=== PATIENT | female | born 1980 | race Caucasian/White ===

== ENCOUNTER → 2018-04-15 | Outpatient (CLI) | END | disposition home or self-care (01) ==

== ENCOUNTER 2018-07-29 14:16 | Outpatient (CLI) | payer OTHER ==
[~2018-07-29] VITALS: Ht 157.5 cm; Wt 78.1 kg
[2018-07-29 14:32] VITALS: Ht 157.5 cm; Wt 78.1 kg
[2018-07-29 14:34] VITALS: BP 124/84
[2018-07-29] MEDS ORDERED: PREN1TAB71 PO (14:35)
--- NOTE | 2018-07-29 17:04 | PN ---
Triage Information Date/Time Reason for visit: One elevated blood pressure in office. Sent for further evaluation Weeks of Gestation 37 weeks and 5 days /Para Diabetes: gestational Hypertention: none Objective Vital Signs Date Temp Pulse Resp B/P (MAP) Pulse Ox O2 O2 Flow FiO2 Time Delivery Rate 07/29/18 97.6 124/84 14:34 (97) Heart Rate: 140's Contractions: >10 Minutes Apart Results/Medications Result Diagram: 07/29/18 1450 07/29/18 1450 Results 24 hrs Laboratory Tests Test 07/29/18 14:30 07/29/18 14:50 Urine Color STRAW Urine Clarity SLIGHTLY CLOUDY A Urine pH 7.0 Urine Specific [place] 1.002 L Urine Ketones NEGATIVE Urine Nitrite NEGATIVE Urine Bilirubin NEGATIVE Urine Urobilinogen NEGATIVE Urine Leukocyte Esterase NEGATIVE Urine Microscopic RBC 0 Urine Microscopic WBC 2 Urine Squamous Epithelial Cells FEW Urine Bacteria FEW A Urine Hemoglobin NEGATIVE Urine Glucose 1+ H Urine Total Protein NEGATIVE White Blood Count 8.0 Red Blood Count 4.34 Hemoglobin 13.1 Hematocrit 38.6 Mean Corpuscular Volume 88.9 Mean Corpuscular Hemoglobin 30.2 Mean Corpuscular Hemoglobin Concent 33.9 Red Cell Distribution Width 13.2 Platelet Count 214 Mean Platelet Volume 12.0 H Immature Granulocytes % 0.500 H Neutrophils % 67.7 Lymphocytes % 22.6 Monocytes % 8.0 Eosinophils % 1.0 Basophils % 0.2 Nucleated Red Blood Cells % 0.0 Immature Granulocytes # 0.040 H Neutrophils # 5.4 Lymphocytes # 1.8 Monocytes # 0.6 Eosinophils # 0.1 Basophils # 0.0 Nucleated Red Blood Cells # 0.0 Prothrombin Time 11.3 L Prothrombin Time Ratio 0.9 INR International Normalized Ratio 0.81 Activated Partial Thromboplast Time 22.9 L Fibrinogen 527.0 H Sodium Level 136 Potassium Level 4.3 Chloride Level 106 Carbon Dioxide Level 22 Anion Gap 8 Blood Urea Nitrogen 11 Creatinine 0.58 Est Glomerular Filtrat Rate mL/min > 60 Glucose Level 106 Uric Acid 4.5 Calcium Level 9.3 Total Bilirubin 0.2 Direct Bilirubin 0.00 Indirect Bilirubin 0.2 Aspartate Amino Transf (AST/SGOT) 19 Alanine Aminotransferase (ALT/SGPT) 18 Alkaline Phosphatase 220 H Total Protein 6.6 Albumin 3.4 Globulin 3.20 Albumin/Globulin Ratio 1.06 Disposition: Discharge Assessment/Plan 37 years old 3 para 1001 with single intrauterine at 37 weeks and 5 days was seen in her primary OB office. She had one elevated blood pressure repeat blood pressure was within normal limits. She referred to triage for further evaluation.She states good movement. She denies nausea, vomiting, shortness of breath, chest pain, abdominal pain, headache, visual changes, vaginal bleeding or LOF. -FHR: No sign of metabolic acidosis- Category I -Contractions: Occasional -Ultrasound performed as noted above -All her blood pressure in triage were within normal limits. Labs within normal limits. -24-hour urine protein ordered. -Symptoms and sign of labor, preeclampsia, kick count discussed with patient, she voiced understanding. All of her questions answered. -Patient was discharged home in stable condition with the appropriate discharge instructions provided. I would like patient to have close follow-up with her primary physician or outpatient clinic in 1-2 days or return to triage for worsening symptoms or any other urgent concerns. 2) gestational diabetes A2 she is currently on metformin 500 mg twice daily. Per patient all blood glucose are within normal limits. Random blood glucose in triage was 88. JOSIAS LAN Jul 29, 2018 17:04
--- NOTE | 2018-07-29 17:13 | TRIAGE ---
OB Triage Datetime Report Generated by CPN: 07/29/2018 17:12 Datetime: 07/29/2018 16:35 Stage of : OB Triage Labor Evaluation Frequency: x1 Monitor Mode: External Duration (sec)2399: 60 Pattern: Normal: <= 5 Contractions in 10 [address]: Relaxed Heart Rate FHR Baseline Rate: 135 Monitor Mode: External US Variability: Moderate 6-25 bpm Accelerations: 15X15 Decelerations: None Category: Category I Datetime: 07/29/2018 15:36 Stage of : OB Triage Labor Evaluation Frequency: IRREGULAR Monitor Mode: External Duration (sec)2399: 50-60 Pattern: Normal: <= 5 Contractions in 10 Minutes [address] Tone [address]: Relaxed Heart Rate FHR Baseline Rate: 135 Monitor Mode: External US Variability: Moderate 6-25 bpm Accelerations: 15X15 Decelerations: None Category: Category I Datetime: 07/29/2018 14:31 Comments: US AT BEDSIDE Datetime: 07/29/2018 14:30 Stage of : OB Triage Assessment Type: Triage Time of Arrival: 07/29/2018 14:08 EGA: 37.5 Arrived By: Ambulatory Arrived From: Dr. Giraldo Chief Complaint: SENT FROM CLINIC FOR PIH EVALUATION Movement: Present Contractions: Denies/Absent Rupture of Membranes: Denies Vaginal Bleeding: None Vaginal Discharge: Denies Recent Sexual Intercouse: Denies Abdominal Trauma: Not Applicable Patient Complaints: None Time Provider Notified: 07/29/2018 16:48 Provider Notified: Dr. Velasquez Initial Plan: EFM, BPP RONIT, PIH PANEL Maternal Assessment Level of Consciousness: Fully Conscious DTR's/Clonus: DTRs 2+; No Clonus Headache: Denies Blurred Vision: No Respiratory Effort: Unlabored; Regular Rhythm; Equal Expansion Breath Sounds, Left: Clear and Equal Breath Sounds, Right: Clear and Equal Nausea/Vomiting: Denies RUQ Epigastric Pain: Denies Lower Extremities Edema: None Degree: None Upper Extremities Edema: None Degree: None Facial Edema: None Temperature Route: Oral Fall Risk Assessment History of Falling: (0) No Secondary Diagnosis: (0) No Ambulatory Aid: (0) Bedrest/Nurse Assist IV Therapy: (0) No Gait: (0) Normal/Bedrest/Immobile Mental Status: (0) Oriented to Own Ability Fall Score: 0 Fall Risk Score Definition: No Risk: No action required Monitor Mode: External (Annotations: INITITAL PLACEMENT ) Monitor Mode: External US (Annotations: INITIAL PLACEMENT ) Pain Assessment Pain Scale: 0 Pain Presence: None/Denies Pain Type: N/A
[2018-07-30] MEDS ORDERED: METF500T24 PO ×2 (21:55→21:56)
== END 2018-07-29 17:10 | disposition home or self-care (01) ==
LOC: OBT 14:16 → L-D 14:16 → OBT 17:10
PROVIDERS: ATTEND Obstetrics & Gynecology
DX: O24.419 Gestational diabetes mellitus in pregnancy, unspecified control (principal); Z3A.37 37 weeks gestation of pregnancy
CPT/HCPCS: 76818; 80053; 81001; 81003; 84560; 85025; 85384; 85610; 85730; Z7500; G0463

== ENCOUNTER 2018-07-30 19:02 | Inpatient (IN) | payer OTHER ==
[~2018-07-30] VITALS: Ht 157.5 cm; Wt 78.9 kg
[~2018-07-30 19:02] MED LIST: PREN1TAB71 PO
--- NOTE | 2018-07-30 21:34 | HP ---
Date/Time of Note Date/Time of Note DATE: 07/30/18 TIME: 21:31 OB - History Hx of Present Free Text/Dictation 37 YO with IUP at 35 weeks with EDC 09/02/2018. she was seen in Triage yesterday due o premature uterine contractions. she was 1.5 cm dilated. she was given Procardia XL 60 mg po and oral hydration. she felt better. she was given first dose of steroid. she is here for 2nd dose of Betamethasone. she denies UCs, LOF per vagina or vaginal bleeding. she reports good FM. Care: Good Care Ultrasounds: Normal mid trimester US Obstetrical Complications: None Medical Complications: None Past Family/Social History * Past Medical, Surgical, Family and Obstetric Histories reviewed from chart. OB Admission Exam Physical Exam HEENT: WNL Heart: Rhythm Normal Lungs: Clear, Equal Abdomen: WNL Extremities: Normal Reflexes: Normal OB Assessment/Plan Other Assessment: IUP at 35 weeks Labor Resolved Plan: Expectant Management IHSAN SALVADOR MD Jul 30, 2018 21:34
[2018-07-30 21:51] VITALS: Ht 157.5 cm; Wt 78.9 kg
[2018-07-30] MEDS ORDERED: METF500T24 PO ×2 (21:55→21:56)
[2018-07-30] MEDS ORDERED: OXYTOCIN 30 UNITS/LR 500 ML IV PRN (22:30)
[2018-07-30] MEDS ORDERED: CARBOPROST 250 MCG INJ IM PRN (22:30)
[2018-07-30] MEDS ORDERED: LIDOCAINE 1% (MPF) 30 ML INJ INJ PRN (22:30)
[2018-07-30] MEDS ORDERED: OXYTOCIN 30 UNITS/LR 500 ML IV SCH ×2 (22:30)
[2018-07-30] MEDS ORDERED: MISOPROSTOL 200 MCG TAB PR PRN (22:30)
[2018-07-30] MEDS ORDERED: BUTORPHANOL 2 MG INJ IV PRN (22:30)
[2018-07-30] MEDS ORDERED: METHYLERGONOVINE 0.2 MG INJ IM PRN (22:30)
[2018-07-31] MEDS ORDERED: ACCU-CHEK XX SCH (06:00)
[2018-07-31] MEDS ORDERED: METOCLOPRAMIDE 10 MG INJ ONE (07:00)
[2018-07-31] MEDS ORDERED: OXYTOCIN 30 UNITS/LR 500 ML BAG IV ONE (07:00)
[2018-07-31] MEDS ORDERED: CEFAZOLIN 2 GM/50 ML (PMX) 50 ML IVPB ONE ×2 (10:30→11:30)
--- NOTE | 2018-07-31 14:30 | PREAC ---
Date/Time of Note Date/Time of Note DATE: 07/31/18 TIME: 14:28 Anesthesia Eval and Record Evaluation Time Pre-Procedure Interview DATE: 07/31/18 TIME: 14:28 Age 37 Sex female NPO: 8 hrs Preoperative diagnosis IUP Planned procedure Repeat Csection Past Medical History Past Medical History: Includes Endo: Diabetes Surgery & Anesthesia Issues No known issue Meds Anticoagulation: No Beta Maximiliano within 24 hr: No Reason Beta Maximiliano not given: Pt. not on B-Maximiliano Reported Medications Metformin Hcl* (Metformin Hcl*) 500 Mg Tablet, 500 MG PO WITH MEALS, #90 TAB 07/30/18 Metformin Hcl* (Metformin Hcl*) 500 Mg Tablet, 500 MG PO WITH BREAKFAST, #30 TAB 07/30/18 Vit No.130/Iron/FA ( Tablet) 1 Each Tablet, 1 EACH PO 07/29/18 Current Medications Lactated Ringer's 1,000 ml @ 125 mls/hr Q8H IV ; Start 07/30/18 at 22:07 Butorphanol Tartrate (Stadol) 2 mg Q2H PRN IV .PAIN; Start 07/30/18 at 22:30 Lidocaine (Xylocaine 1% (Mpf)) 30 ml ONCE PRN INJ .EPISIOTOMY; Start 07/30/18 at 22:30 Oxytocin/Lactated Ringer's 500 ml @ 500 mls/hr ONCE POST IV ; Start 07/30/18 at 22:30 Oxytocin/Lactated Ringer's 500 ml @ 125 mls/hr POST IV ; Start 07/30/18 at 22:30 Oxytocin/Lactated Ringer's 500 ml @ 0 mls/hr ONCE PRN IV .VAGINAL BLEEDING; Start 07/30/18 at 22:30 Methylergonovine Maleate (Methergine) 0.2 mg ONCE PRN IM .VAGINAL BLEEDING; Start 07/30/18 at 22:30 Carboprost Tromethamine (Hemabate) 250 mcg ONCE PRN IM .VAGINAL BLEEDING; Start 07/30/18 at 22:30 Misoprostol (Cytotec) 1,000 mcg ONCE PRN ID .VAGINAL BLEEDING; Start 07/30/18 at 22:30 Diagnostic Test (Pha) (Accu-Chek) 1 ea FBSPP XX ; Start 07/31/18 at 06:00 Meds reviewed: Yes Allergies Coded Allergies: No Known Allergy (Unverified , 07/30/18) Allergies Reviewed: Yes Labs/Studies Labs Reviewed: Reviewed by anesthesiologist Result Diagram: 07/31/18 1030 Laboratory Tests 07/31/18 10:30 Blood Bank Test 07/31/18 10:30 Antibody Screen NEGATIVE Blood Type A POSITIVE Rh Immune Globulin Candidate NO test: Positive Studies: ECG Pre-procedure Exam Last vitals BP:112/56, P:78, Spo2:100%, T:98,8 Airway: Adequate mouth opening, Adequate thyromental dist Mallampati: Mallampati II Teeth: Normal Lung: Normal Heart: Normal ASA Physical Status ASA physical status: 2 Emergency: None Planned Anesthetic Neuraxial: Spinal Planned Pain Management Sub-arachniod narcotics, Parenteral pain med Pre-operative Attestations Prior to commencing anesthesia and surgery, the patient was re-evaluated, there was verification of: *The patient's identity *The results of appropriate recent lab work and preoperative vital signs *The above evaluation not changing prior to induction *Anesthetic plan, risk benefits, alternative and complications discussed with patient/family; questions answered; patient/family understands, accepts and wishes to proceed. SHUN COELLO MD Jul 31, 2018 14:30
[2018-07-31] MEDS: LACTATED RINGER'S 1,000 ML IV SCH (15:30)
[2018-07-31] MEDS ORDERED: OXYTOCIN 10 UNIT INJ ONE (16:18)
[2018-07-31] MEDS ORDERED: morphine SULFATE/PF (10 MG/10 ML) INJ ONE (16:18)
[2018-07-31] MEDS ORDERED: ONDANSETRON 4 MG INJ ONE (16:18)
[2018-07-31] MEDS ORDERED: PHENYLephrine (100 MCG/ML) 5ML SYG ONE (16:18)
[2018-07-31] MEDS ORDERED: PHENYLephrine 10 MG INJ ONE (17:29)
--- NOTE | 2018-07-31 17:30 | HP ---
Date/Time of Note Date/Time of Note DATE: 07/31/18 TIME: 17:25 OB - History Hx of Present Free Text/Dictation 37-year-old female 4 para 1 AB 2 at 88 weeks gestation admitted because of gram of proteinuria and elevated blood pressure day prior to admission hence diagnosis of PIH Patient is also gestational diabetic She has history of previous times 119 years prior to this admission Last Menstrual Period: Nov 07, 2017 Estimated Due Date: Aug 14, 2018 : 4 Para: 1 Therapeutic : 2 Care: Good Care Ultrasounds: Normal mid trimester US Obstetrical Complications: Gestational Diabetes, Gestational Hypertension Medical Complications: None, Other (Previous x1) Past Family/Social History * Past Medical, Surgical, Family and Obstetric Histories reviewed from chart. Blood Type: A+ Rubella: immune RPR/VDRL: Negative GBS Status: Negative HBsAG: Negative OB Admission Exam Physical Exam HEENT: WNL Heart: Rhythm Normal Lungs: Clear, Equal Abdomen: WNL Extremities: Normal Reflexes: Normal Cervical Dilatation: None Effacement: 0% Station: -3 Membranes: Intact Amniotic Fluid: Clear Heart Rate: 140's Accelerations: Accelerations Present Decelerations: No Decelerations Varibility: Marked Contractions on Admission: None Last 72 hourBlood Glucose Bedside Glucose - 72 Hours Test 07/30/18 23:04 07/31/18 09:35 Bedside Glucose 108 mg/dL (70-220) 97 mg/dL (70-220) Last 72 hours Lab Results CBC & BMP 07/31/18 10:30 OB Assessment/Plan Reason for admission: section Other Assessment: Previous section x1 38 weeks gestation Mild -induced hypertension and gestational diabetes Other plan: Repeat section BROOKE PELAYO MD Jul 31, 2018 17:30
[2018-07-31] MEDS ORDERED: GLYCOPYRROLATE 0.4 MG INJ ONE (17:32)
[2018-07-31] MEDS ORDERED: KETOROLAC 30 MG INJ IV STA (17:34)
--- NOTE | 2018-07-31 17:34 | OPR ---
Operative Report Planned Procedure Free Text/Dictation Repeat Procedure date Jul 31, 2018 Procedure(s) Repeat delivery Performed by see signature line Inside Polisher: CAMRON PARSON MD Anesthesiologist: SHUN COELLO MD Pre-procedure diagnosis 38 weeks gestation Previous section Hypertension gestational diabetes [id number] Anesthesia Type: Attys1p spinal Post-Procedure Post-procedure diagnosis Status post repeat Findings Live Baby in OT position Clear and scant amniotic fluid Didelphic uterus Normal-appearing right and left fallopian tubes Estimated Blood Loss: 500 - 600 mls Specimen(s) none Grafts/Implant(s) none Complication(s) none Pt Condition post procedure: stable Disposition: PACU Procedure Description Under satisfactory anaesthesia a Pfannenstiel incision was made two fingerbreadth above and parallel to the symphysis of pubis around the previous scar and previous scar was removed Incision was extended laterally to the border of the Recti muscles on either sides. Incision was carried down with sharp and blunt dissection until fascia was reached. Anterior Recti muscle fascia was incised in mid portion and incision extended laterally to the border of skin incision. Fascia was mobilized from muscle superiorly and Recti muscles were from midline using sharp and blunt dissection. Peritoneum was visualized; Avoiding bowel and bladder it was incised . Incision was extended superiorly and inferiorly. Bladder blade was placed. Posterior peritoneum covering the lower segment of the uterus and lower segment of the uterus were incised.Low transverse uterine incision was made on lower segment of the uterus. Incision extended laterally to the border of Round Lig. on either sides and baby was delivered from OT. position . Amniotic fluid appeared clear however scant. Cord blood was obtained and cord had 3 vessels . Placenta was delivered spontaneously and appeared intact and complete. Intrauterine cavity was rubbed with a laparotomy sponge. Uterine incision was closed in 2 layers using running stitches of No1 Monocryl. Hemostasis appeared secure. Ovaries and Fallopian tubes were within normal limits. Uterus appears to be didelphic patient appeared to be on the left side of the Announcing needle, lap sponge and instrument count to be correct abdomen was closed in layers as follows: Peritoneum and Recti muscles with running stitches of 2-0 Vicryl. Fascia with running stitch of No 1 PDS. Subcutaneous tissue with running stitches of 2-0 Monocryl and skin was closed using benson. Patient tolerated the procedure well and was transferred to [facility] in good condition. BROOKE PELAYO MD Jul 31, 2018 17:34
--- NOTE | 2018-07-31 17:49 | PAC ---
Date/Time of Note Date/Time of Note DATE: 07/31/18 TIME: 17:48 Post-Anesthesia Notes Post-Anesthesia Note Activity: WNL Respiratory function: WNL Cardiovascular function: WNL Mental status: Baseline Pain reasonably controlled: Yes Hydration appropriate: Yes Nausea/Vomiting absent: Yes Comments bp:112/56, p:78, sPO2:100%, t:98,8 SHUN COELLO MD Jul 31, 2018 17:49
[2018-07-31] MEDS ORDERED: NALOXONE (0.4 MG/ML) INJ IV PRN (18:00)
[2018-07-31] MEDS ORDERED: KETOROLAC 30 MG INJ IV PRN (18:00)
[2018-07-31] MEDS ORDERED: ONDANSETRON 4 MG INJ IV PRN (18:00)
[2018-07-31] MEDS ORDERED: AZITHROMYCIN 500MG/NS (PMX) 250 ML IVPB ONE (18:00)
[2018-07-31] MEDS ORDERED: morphine 2 MG INJ IV PRN (18:00)
[2018-07-31] MEDS ORDERED: DIPHENHYDRAMINE 50 MG INJ IV PRN (18:00)
[2018-07-31] MEDS ORDERED: BACITRACIN 0.9 GM OINT TOP ONE (18:30)
[2018-07-31 20:45] VITALS: BP 121/80; PULSE 81; RESP 20
[2018-07-31] MEDS ORDERED: LACTATED RINGER'S 1,000 ML IV SCH (21:33)
[2018-07-31] MEDS ORDERED: MISOPROSTOL 200 MCG TAB PR PRN (22:00)
[2018-07-31] MEDS ORDERED: LANOLIN HPA 1 PKT TOP PRN (22:00)
[2018-07-31] MEDS ORDERED: METHYLERGONOVINE 0.2 MG INJ IM PRN (22:00)
[2018-07-31] MEDS ORDERED: OXYTOCIN 30 UNITS/LR 500 ML IV PRN (22:00)
[2018-07-31] MEDS ORDERED: CARBOPROST 250 MCG INJ IM PRN (22:00)
[2018-07-31] MEDS: SENNA/DOCUSATE NA (8.6MG/50MG) TAB PO SCH (22:00)
[2018-07-31] MEDS ORDERED: NA PHOSPHATE/BIPHOS 133 ML ENEMA PR PRN (22:00)
[2018-07-31] MEDS: CLINDAMYCIN 300 MG CAP PO SCH (22:21)
[2018-07-31] MEDS: CEFAZOLIN 2 GM/50 ML (PMX) 50 ML IVPB SCH (23:50)
[2018-08-01 00:29] VITALS: BP 125/81; PULSE 92; RESP 19
[2018-08-01 04:00] VITALS: BP 111/69; PULSE 82; RESP 20
[2018-08-01] MEDS: CEFAZOLIN 2 GM/50 ML (PMX) 50 ML IVPB SCH ×3 (06:00→13:51)
[2018-08-01] MEDS: LACTATED RINGER'S 1,000 ML IV SCH ×3 (06:06→23:13)
[2018-08-01] MEDS: CLINDAMYCIN 300 MG CAP PO SCH ×4 (06:42→23:49)
[2018-08-01] MEDS: ACCU-CHEK XX SCH ×4 (07:30→21:21)
[2018-08-01 08:00] VITALS: BP 111/70; RESP 18
[2018-08-01] MEDS: SENNA/DOCUSATE NA (8.6MG/50MG) TAB PO SCH ×2 (08:29→21:17)
[2018-08-01] MEDS: metFORMIN (XR) 500 MG TAB PO SCH ×2 (08:29→21:17)
[2018-08-01] MEDS ORDERED: BISACODYL 10 MG SUPP PR ONE (10:00)
[2018-08-01 12:00] VITALS: BP 100/62; PULSE 89; RESP 18
[2018-08-01 15:05] VITALS: BP 108/69; PULSE 83; RESP 19
--- NOTE | 2018-08-01 16:44 | PN ---
Date/Time of Note Date/Time of Note DATE: 08/01/18 TIME: 16:42 Assessment/Plan VTE Prophylaxis VTE Prophylaxis Intervention: ambulation Lines/Catheters IV Catheter Type (from Nrsg): Peripheral IV Assessment/Plan Assessment/Plan Status post postop day #1 Advance diet and ambulate Continue to monitor vital signs Subjective 24 Hr Interval Summary No bowel movement but passing flatus Constitutional: no complaints, improved, ambulates, BM, flatus, urine output Pain Control: well controlled Exam/Review of Systems Vital Signs Vitals Vital Signs Date Temp Pulse Resp B/P (MAP) Pulse Ox O2 O2 Flow FiO2 Time Delivery Rate 08/01/18 97.9 83 19 108/69 98 Room Air 15:05 (82) Intake and Output 07/31/18 07/31/18 08/01/18 1515:00 23:00 07:00 IntakeIntake Total 550 ml 1565 ml OutputOutput Total 450 ml BalanceBalance 550 ml 1115 ml Exam Free Text/Dictation Abdomen is soft with present bowel sounds and abdomen does not seem distended Constitutional: alert, oriented, well developed Psych: no complaints, nl mood/affect Head: normocephalic, atraumatic Eyes: nl conjunctiva, EOMI, nl lids, nl sclera ENMT: nl external ears & nose, nl lips & teeth, nl nasal mucosa & septum, mucosa pink and moist Neck: supple, non-tender Respiratory: clear to auscultation, normal air movement Cardiovascular: regular rate and rhythm, nl pulses Gastrointestinal: soft, nl liver, spleen, non-tender Musculoskeletal: nl extremities to inspection, nl gait and stance Extremities: normal pulses Neurological: [employer] II-XII intact, nl mental status, nl speech, nl strength Skin: nl turgor, rash or lesions Lymph: nl lymph nodes Results Result Diagram: 08/01/18 1619 BROOKE PELAYO MD Aug 01, 2018 16:44
[2018-08-01] MEDS ORDERED: HYDROCODONE/APAP (5/325) TAB PO PRN (18:00)
[2018-08-01] MEDS: CIPROFLOXACIN 500 MG TAB PO SCH (18:33)
[2018-08-01 20:15] VITALS: BP 126/87; PULSE 89; RESP 18
[2018-08-01] MEDS: IBUPROFEN 800 MG TAB PO SCH (21:17)
[2018-08-01] MEDS: OXYCODONE/ACETAMINOPHEN (5/325) TAB PO PRN (22:23)
[2018-08-02] MEDS: OXYCODONE/ACETAMINOPHEN (5/325) TAB PO PRN (03:55)
[2018-08-02 05:12] VITALS: BP 116/78; PULSE 82; RESP 18
[2018-08-02] MEDS: LACTATED RINGER'S 1,000 ML IV SCH (06:00)
[2018-08-02] MEDS: CLINDAMYCIN 300 MG CAP PO SCH ×3 (06:04→17:59)
[2018-08-02] MEDS: IBUPROFEN 800 MG TAB PO SCH ×3 (06:05→22:49)
[2018-08-02] MEDS: CIPROFLOXACIN 500 MG TAB PO SCH ×2 (06:05→17:59)
[2018-08-02] MEDS: ACCU-CHEK XX SCH ×4 (07:30→20:46)
[2018-08-02 08:25] VITALS: BP 124/85; PULSE 82; RESP 17
[2018-08-02] MEDS: SENNA/DOCUSATE NA (8.6MG/50MG) TAB PO SCH ×2 (08:28→20:46)
[2018-08-02] MEDS: metFORMIN (XR) 500 MG TAB PO SCH ×2 (09:03→20:46)
--- NOTE | 2018-08-02 15:20 | PD.PPDC ---
BLAST FURNACE CHECKER Discharge Instruction Provider Information Physician Information 37-year-old female repeat section with diagnosis of mild - induced hypertension at 37 weeks Diagnosis Eytep1Sf Final Diagnosis: Iwlis2g -induced hypertension, gestational diabetes, 38 weeks gestation, Condition [id number] Patient Condition: Ypbsm0b Good Diet [id number] Diet: Zftat4c Special Diet Special Diet: 2000-calorie ADA Activity/Restrictions [id number] Activity: Shxzs3k September Shower Tdqtm1Lg Restrictions: Oyvyo5q No Exercising No Lifting Nothing in the Vagina [id number] Return to Work or School: Eveaz5t September 28, 2018 Wound/Drain Care Instructions [id number] Wound/Drain Care Instructions: Kukfx4o Keep clean and dry Follow-up Follow-up with Physician: 2, 3, Day/Days (In clinic for staple removal) Return to clinic for [id number] CHAIN PULLER Instructions: Bdnnw2j Fever greater than 101 Chills Ufipx1Hu OB Instructions: Wsjah6m Breast Tenderness Depression Comment: Pelvic rest no hard activity for 2 months [id number] Surgical Instructions: Irzfs9r Incisional Drainage BROOKE PELAYO MD Aug 02, 2018 15:20
[2018-08-02] MEDS ORDERED: ACET325T33 PO ×2 (15:21→15:42)
[2018-08-02] MEDS ORDERED: METF500T3 PO ×2 (15:22→15:40)
[2018-08-02] MEDS ORDERED: IBUP800T48 PO ×2 (15:22→15:39)
--- NOTE | 2018-08-02 15:24 | DS ---
Date/Time of Note Date/Time of Note Home today or next day DATE: 08/02/18 TIME: 15:23 Obstetrical Discharge Record Final Diagnosis Final Diagnosis: Term delivered Other Final Diagnosis Status post Section Section: Repeat Complications Gestational Diabetes, Preg induced Hypertension Condition on Discharge Physical Assessment Last Vitals: See nurse's notes Voiding: Yes Bowel Movement: Yes Breast: Soft, non-tender, Filling Fundus: Firm Abdomen and Incision: Abdomen is soft with present bowel sounds Incision appears to be healing well without induration erythema Calf Tenderness: No Patient Condition: Good BROOKE PELAYO MD Aug 02, 2018 15:24
--- NOTE | 2018-08-02 15:27 | DS ---
Date/Time of Note Date/Time of Note DATE: 08/02/18 TIME: 15:24 Discharge Summary Admission/Discharge Info Admit Date/Time Jul 30, 2018 at 21:00 Discharge Date/Time August 02 or August 03, 2018 Discharge Diagnosis Status post repeat , Status post -induced hypertension, Gestational diabetes Patient Condition: Good Procedures Repeat delivery Hx of Present Illness 37-year-old female had a repeat Noted to have didelphic uterus Hospital Course Hospital course remained uncomplicated Home Meds Active Scripts Ibuprofen* (Motrin*) 800 Mg Tab, 800 MG PO Q8, #60 TAB 0 Refills Prov:BROOKE PELAYO MD 08/02/18 Metformin* (Glucophage* XR) 500 Mg Tab.sr.24h, 500 MG PO BID, #120 4 Refills Prov:BROOKE PELAYO MD 08/02/18 Acetaminophen* (Tylenol*) 325 Mg Tablet, 650 MG PO Q6H, #60 TAB 0 Refills Prov:BROOKE PELAYO MD 08/02/18 Reported Medications Metformin Hcl* (Metformin Hcl*) 500 Mg Tablet, 500 MG PO WITH MEALS, #90 TAB 07/30/18 Metformin Hcl* (Metformin Hcl*) 500 Mg Tablet, 500 MG PO WITH BREAKFAST, #30 TAB 07/30/18 Vit No.130/Iron/FA ( Tablet) 1 Each Tablet, 1 EACH PO 07/29/18 Follow-up Plan To 3 days in clinic for staple removal Primary Care Provider Not On Staff Doctor Time spent on discharge: > 30 minutes Pending Labs Laboratory Tests Test 08/01/18 16:19 08/01/18 21:21 08/02/18 07:25 08/02/18 08:26 White Blood 15.8 14.8 Count 10^3/ul (4.8-10 10^3/ul (4.8-1 .8) 0.8) Red Blood 3.24 3.07 Count 10^6/ul (4.20-5 10^6/ul (4.20- .40) 5.40) Hemoglobin 9.9 9.5 g/dl (12.0-16.0 g/dl (12.0-16. ) 0) Hematocrit 29.2 28.3 % (37.0-47.0) % (37.0-47.0) Mean 90.1 92.2 Corpuscular fl (82.0-101.0) fl (82.0-101.0 Volume ) Mean 30.6 30.9 Corpuscular pg (29.0-33.0) pg (29.0-33.0) Hemoglobin Mean 33.9 33.6 Corpuscular g/dl (32.0-37.0 g/dl (32.0-37. Hemoglobin Conc ) 0) ent Red Cell 13.5 13.6 Distribution % (11.5-14.5) % (11.5-14.5) Width Platelet Count 163 167 10^3/UL (140-41 10^3/UL (140-4 5) 15) Mean Platelet 11.6 12.2 Volume fl (7.4-10.4) fl (7.4-10.4) Immature 0.400 0.600 Granulocytes % % (0.001-0.429) % (0.001-0.429 ) Neutrophils % 81.1 79.5 % (39.0-77.0) % (39.0-77.0) Lymphocytes % 13.3 14.9 % (15.0-51.0) % (15.0-51.0) Monocytes % 4.6 3.9 % (0.0-11.0) % (0.0-11.0) Eosinophils % 0.4 % (0.0-7.0) 0.8 % (0.0-7.0) Basophils % 0.2 % (0.0-2.0) 0.3 % (0.0-2.0) Nucleated Red 0.0 0.0 Blood Cells % /100WBC (0.0-0. /100WBC (0.0-0 0) .0) Immature 0.060 0.090 Granulocytes # 10^3/ul (0.0-0. 10^3/ul (0.0-0 031) .031) Neutrophils # 12.8 11.8 10^3/ul (1.6-7. 10^3/ul (1.6-7 5) .5) Lymphocytes # 2.1 2.2 10^3/ul (0.8-2. 10^3/ul (0.8-2 9) .9) Monocytes # 0.7 0.6 10^3/ul (0.3-0. 10^3/ul (0.3-0 9) .9) Eosinophils # 0.1 0.1 10^3/ul (0.0-0. 10^3/ul (0.0-0 5) .5) Basophils # 0.0 0.1 10^3/ul (0.0-0. 10^3/ul (0.0-0 1) .1) Nucleated Red 0.0 0.0 Blood Cells # 10^3/ul (0.0-0. 10^3/ul (0.0-0 0) .0) Bedside 107 95 Glucose mg/dL (70-220) mg/dL (70-220) Test 08/02/18 10:31 08/02/18 11:05 08/02/18 14:47 Bedside 91 91 106 Glucose mg/dL (70-220) mg/dL (70-220) mg/dL (70-220) BROOKE PELAYO MD Aug 02, 2018 15:27
[2018-08-02] MEDS ORDERED: ACETAMINOPHEN 325 MG TAB PO SCH (15:30)
[2018-08-02 15:40] VITALS: RESP 16
[2018-08-02 15:50] VITALS: BP 109/72; PULSE 87; RESP 16
[2018-08-02] MEDS: ACETAMINOPHEN 325 MG TAB PO SCH ×2 (16:22→22:00)
[2018-08-02 20:20] VITALS: BP 128/70; PULSE 75; RESP 20
[2018-08-03] MEDS: CLINDAMYCIN 300 MG CAP PO SCH ×3 (00:18→13:23)
[2018-08-03 04:00] VITALS: BP 112/70; PULSE 81; RESP 18
[2018-08-03] MEDS: ACETAMINOPHEN 325 MG TAB PO SCH ×2 (04:00→13:24)
[2018-08-03] MEDS: CIPROFLOXACIN 500 MG TAB PO SCH (05:38)
[2018-08-03] MEDS: IBUPROFEN 800 MG TAB PO SCH (05:38)
[2018-08-03 07:45] VITALS: BP 120/77; PULSE 76; RESP 18
[2018-08-03] MEDS: metFORMIN (XR) 500 MG TAB PO SCH (08:48)
[2018-08-03] MEDS: SENNA/DOCUSATE NA (8.6MG/50MG) TAB PO SCH (08:48)
[2018-08-03] MEDS ORDERED: MEASLES,MUMPS,RUBELLA VACCINE INJ SC* ONE (09:00)
[2018-08-03] MEDS ORDERED: DIPHTH/TET/ACEL PERTUSS (ADULT) 0.5 ML VIAL IM* ONE (09:00)
--- NOTE | 2018-08-04 16:57 | DELSUM ---
Delivery Summary A-C Datetime Report Generated by CPN: 08/04/2018 16:56 DELIVERY PERSONNEL [employer]: Paul, Maddi MATERNAL INFORMATION Delivery Anesthesia: Spinal Medications in Delivery: SEE FLOW SHEET Delivery QBL (ml): 600 Placenta Cultured: No Maternal Complications: None Other Maternal Complications: Rc/s [facility] LABOR SUMMARY EDC: 08/14/2018 00:00 No. Babies in Womb: 1 Attempted: No Labor Anesthesia: None LABOR INFORMATION Reason for Induction: Not Applicable Oxytocin: N/A Group B Beta Strep: Negative Antibiotics # of Doses: Ancef 2 grams Antibiotics Time of Last Dose: 07/31/2018 16:27 Steroids Given: None Reason Steroids Not Administered: Not Applicable MEMBRANES Membranes Rupture Method: Artificial Rupture of Membranes: 07/31/2018 16:53 Length of Rupture (hr): 0.00 Amniotic Fluid Color: Bloody Amniotic Fluid Amount: Scant Amniotic Fluid Odor: None STAGES OF LABOR Stage 3 hr: 0 Stage 3 min: 0 CSECTION DELIVERY Primary Indication: Repeat Elective Secondary Indication: N/A CSection Urgency: Non Elective CSection Incidence: Repeat Labor: No Labor Elective: Nonelective CSection Incision: Lower Uterine Transverse BABY A INFORMATION Delivery Date/Time: 07/31/2018 16:53 Method of Delivery: Born in Route : No : N/A Forceps: N/A Vacuum Extraction: N/A Shoulder Dystocia : N/A SHOULDER DYSTOCIA BABY A Infant Delivery Date/Time: 07/31/2018 16:53 PRESENTATION/POSITION BABY A Presentation: Cephalic Cephalic Presentation: Vertex Vertex Position: Right Occipital Posterior Breech Presentation: N/A PLACENTA INFORMATION BABY A Placenta Delivery Time : 07/31/2018 16:53 Placenta Method of Delivery: Manual Removal Placenta Status: Delivered SCORES BABY A Heart Rate 1 min: >100 bpm Resp Effort 1 min: Good Cry Reflex Irritability 1 min: Cough/Sneeze/Pulls Away Muscle Tone 1 min: Active Motion Color 1 min: Body [place], Extremit Blue Resuscitation Effort 1 min: Tactile Stimulation SCORE 1 MIN: 9 Heart Rate 5 min: >100 bpm Resp Effort 5 min: Good Cry Reflex Irritability 5 min: Cough/Sneeze/Pulls Away Muscle Tone 5 min: Active Motion Color 5 min: Body [place], Extremit Blue Resuscitation Effort 5 min: Tactile Stimulation SCORE 5 MIN: 9 INFANT INFORMATION BABY A Gestational Age at Delivery: 38.0 Gestational Status: Early Term- 37- 38.6 Weeks Infant Outcome : Liveborn Infant Condition : Stable Infant Sex: Female IDENTIFICATION/MEDS BABY A ID Band Number: [id number] ID Band Location: Right Leg; Left Arm Sensor Applied: Yes Sensor Number: [id number] Sensor Location : Cord Clamp Vitamin K Given : Not Given Erythromycin Given: Not Given WEIGHT/LENGTH BABY A Infant Birthweight (gm): 3235 Weight (lb): 7 Infant Weight (oz): 2 Length (in): 19.00 Infant Length (cm): 48.26 CORD INFORMATION BABY A No. Cord Vessels: 3 Nuchal Cord : N/A Cord Blood Taken: Yes Suction: Mouth; Nose ASSESSMENT BABY A Complications: None Physical Findings at Delivery: Within Normal Limits Infant Respirations: Appears Normal Vulcanizer Rubber Plate/ALS Called : Yes Care By: Joelle/Sabiha RT Transferred To: Remains with Mother
== END 2018-08-03 16:50 | disposition home or self-care (01) | DRG 788 ==
LOC: OBT 19:02 → L-D 19:03 → OBT 21:00 → L-D 21:00 → PP1 07-31 20:43
PROVIDERS: ADMIT Obstetrics & Gynecology; ATTEND Obstetrics & Gynecology
PROC: 10D00Z1 Extraction of Products of Conception, Low, Open Approach (ICD-10-PCS; principal; 2018-07-31 16:45)
DX: O14.94 Unspecified pre-eclampsia, complicating childbirth (principal); O24.429 Gestational diabetes mellitus in childbirth, unspecified control; O34.03 Maternal care for unspecified congenital malformation of uterus, third trimester; Z3A.38 38 weeks gestation of pregnancy; Z37.0 Single live birth
CPT/HCPCS: 82575; 82962; 84156; 85025; 85610; 85730; 86592; 86850; 86900; 86901; 87340; 99464; G0463; J0690; J1885; J2210; J2274; J2370; J2405; J2590; J2765; J7120